=== PATIENT | male | born 1985 | race Caucasian/White ===

== ENCOUNTER 2020-10-26 05:30 | Emergency (ER) | payer OTHER, SELFPAY ==
--- NOTE | ~2020-10-26 | CT_ITS ---
EXAMINATION: CT HEAD WITHOUT CONTRAST CLINICAL INFORMATION: Dizziness COMPARISON: None TECHNIQUE: Contiguous axial imaging was performed from the skull base to vertex without intravenous administration of contrast. This CT examination was performed using dose optimization techniques as appropriate, variously including the following: *Automated exposure control *Adjustment of mA and/or kV according to patient size (this includes techniques or standardized protocols for targeted exams where dose is matched to indication/reason for exam; i.e. extremities or head) *Use of iterative reconstruction technique DLP: 752 mGy-cm FINDINGS: There is no evidence of acute intracranial hemorrhage or territorial infarction. No abnormal mass effect or midline shift is seen. Rae to white matter differentiation is well preserved. No extra-axial fluid collections are identified. The ventricles are normal in size. There is no abnormal attenuation within the brain parenchyma. The paranasal sinuses are well aerated. Patient status post left mastoidectomy. CT/CT head/brain wo con IMPRESSION: No acute intracranial pathology. Status post left mastoidectomy.
--- NOTE | ~2020-10-26 | MR_ITS ---
EXAMINATION: MR BRAIN WITHOUT CONTRAST CLINICAL INFORMATION: Dizziness. COMPARISON: CT head from 10/26/2020. TECHNIQUE: MRI of the brain was obtained using routine sequences without contrast. FINDINGS: No focal restricted diffusion is demonstrated to suggest acute or subacute cerebral ischemia. No evidence of acute or chronic hemorrhagic products on heme-sensitive imaging. Normal parenchymal signal characteristics. The ventricles are normal in morphology and size. No abnormal mass effect. No midline shift. Normal appearance of the pituitary gland. No abnormalities of the posterior fossa with normal appearance of the brainstem and cerebellum. The cerebellar tonsils are positioned at the level of foramen magnum. Normal arterial and venous vascular flow voids are present. Normal, homogeneous marrow signal. Mild mucosal thickening of the paranasal sinuses. Mild leftward nasal septal deviation. Changes of left-sided mastoidectomy. MR/MR head/brain wo con IMPRESSION: 1. No acute intracranial abnormalities. 2. No demonstrated MRI abnormalities to explain the patient's symptoms.
[2020-10-26 05:40] VITALS: BP 119/70; PULSE 72; RESP 18; TEMP 36.5; O2SAT 98; BMI 33.5
[2020-10-26] MEDS: ondansetron HCL 4 MG/2 ML VIAL IVPUSH ×2 (06:05→07:43)
[2020-10-26 06:10] LABS: MANUAL DIFF FLAG NO
[2020-10-26 06:12] LABS: Basophils Absolute Auto 0.1 X10*3/uL (0.0-0.2); Basophils Percent Auto 0.7 % (0-2); Eosinophils Absolute Auto 0.2 X10*3/uL (0.0-0.4); Eosinophils Percent Auto 1.2 % (0-4); Hematocrit 40.3 % (42-52); Hemoglobin 13.4 g/dl (14.0-18.0); Imm Gran Abs Auto 0.14 X10*3/uL (0.00-0.03); Imm Gran Pct Auto 1.2 % (0.0-0.4); Lymphocytes Percent Auto 16.8 % (20-40); Mean Corpuscular HGB Conc 33.3 g/dl (31.0-36.0); Mean Corpuscular Hemoglobin 28.3 pg (27.0-33.0); Mean Platelet Volume 9.6 fL (9.4-12.4); Monocytes Absolute Auto 0.7 X10*3/uL (0.1-1.2); Monocytes Percent Auto 5.4 % (2-11); Neutrophils Absolute Auto 9.1 X10*3/uL (2.0-8.3); Neutrophils Percent Auto 74.7 % (45-73); Platelet Count 319 X10*3/uL (160-400); Red Blood Count 4.74 X10*6/uL (4.60-5.80); Red Cell Distribution Width 14.1 % (11.0-16.0); White Blood Count 12.2 X10*3/uL (4.8-10.8)
[2020-10-26] MEDS: 0.9 % Sodium Chloride 1,000 ML 999 ML IVCONT ×2 (06:40→07:43)
--- NOTE | 2020-10-26 07:04 | ED.NAVMDI ---
HPI - Nausea/Vomiting/Diarrhea General Chief complaint: Nausea/Vomiting/Diarrhea Stated complaint: Vomiting Time Seen by Provider: 10/26/20 06:36 History of Present Illness HPI Narrative: 34 years old male presented with a chief complaint of nausea vomiting dizzness since AM. Denies any abdominal pain any fever chills. Dizziness is described as spinning of the head, patient keep his eyes closed during the interview MD elicited complaint: nausea and vomiting Onset (ago): day(s) (1 day) Description of vomiting: watery Associated nausea: Yes Associated abdominal pain: No Severity: moderate Related Data Previous Rx's Medication Instructions Recorded meclizine 25 mg PO TID PRN #15 tab 10/26/20 ondansetron HCl [Zofran] 4 mg PO Q8H PRN #14 tab 10/26/20 Allergies Allergy/AdvReac Type Severity Reaction Status Date / Time No Known Allergies Allergy Unverified 02/22/20 16:14 Review of Systems Review of Systems: Yes all other systems are reviewed and are negative Cardiovascular: Cardiovascular: Reports no additional cardiovascular complaints Gastrointestinal: Gastrointestinal: Reports no additional gastrointestinal complaints and Reports nausea PMFSH Past Medical History Attestation statement: The following information was validated with the patient. Source: unable to obtain Medical History Hypothyroid Social History Social History Advance Directives: No Advance Directives Information Provided: No Physical Exam Vital Signs: Vital Signs: Last Vital Signs Temp 97.7 F 10/26/20 05:40 Pulse 69 10/26/20 12:11 Resp 16 10/26/20 12:11 BP 116/60 10/26/20 12:11 Pulse Ox 98 10/26/20 12:11 Body Mass Index 33.5 Const: General: cooperative and healthy appearing Orientation/consciousness: oriented to person, oriented to place, oriented to time and patient oriented x3 HENMT: Head: Yes normal to inspection and Yes No palpable skull fracture present Eyes: General: appearance normal, both eyes and all related structures Visual Perez: normal visual perez by confrontation Alignment and Position: alignment normal Neck: Neck: Yes normal visual inspection and Yes full ROM Chest: Chest palpation & inspection: normal inspection of the chest and normal palpation of entire chest wall Resp: Effort & Inspection: normal respiratory effort Cardio: Jugular venous distension: no JVD Palpation: normal PMI GI: Inspection: Yes normal to inspection and No abdominal wall ecchymosis Palpation (GI): Soft to palpation Skin: General skin exam: no rashes or lesions noted and elasticity normal Rashes: no rashes Neuro: General: oriented to person, oriented to place, oriented to time and patient oriented x3 Course Reevaluation(s) Reevaluation #1: The patient continued to be dizzy, is gait is unsteady, head CT is negative. I think at this point that we are going to get an MRI of the brain assuming that is normal patient will be discharged home Time: 14:14 Reevaluation #2: MRI is negative for cerebellar infart , I think at this point we could discharge the patient home, I will prescribe some meclizine and Zofran,clinically he is feeling better able to ambulate no vomiting tolerating po well MDM - Nausea/Vomiting/Diarrhea Lab Data Result diagrams: 10/26/20 06:02 10/26/20 08:20 Labs: Lab Results 10/26/20 10/26/20 10/26/20 Range/Units 06:02 08:20 08:38 WBC 12.2 H (4.8-10.8) X10*3/uL RBC 4.74 (4.60-5.80) X10*6/uL Hgb 13.4 L (14.0-18.0) g/dl Hct 40.3 L (42-52) % MCV 85.0 (80-98) fL MCH 28.3 (27.0-33.0) pg MCHC 33.3 (31.0-36.0) g/dl RDW 14.1 (11.0-16.0) % Plt Count 319 (160-400) X10*3/uL MPV 9.6 (9.4-12.4) fL Immature Gran % (Auto) 1.2 H (0.0-0.4) % Neut % (Auto) 74.7 H (45-73) % Lymph % (Auto) 16.8 L (20-40) % [place] % (Auto) 5.4 (2-11) % Eos % (Auto) 1.2 (0-4) % Baso % (Auto) 0.7 (0-2) % Lymph # (Auto) 2.0 (1.2-4.9) X10*3/uL [place] # (Auto) 0.7 (0.1-1.2) X10*3/uL Eos # (Auto) 0.2 (0.0-0.4) X10*3/uL Baso # (Auto) 0.1 (0.0-0.2) X10*3/uL Abs Immat Gran (auto) 0.14 H (0.00-0.03) X10*3/uL Absolute Neuts (auto) 9.1 H (2.0-8.3) X10*3/uL Absolute Nucleated RBC 0.000 (0.0-0.012) X10*3/uL Nucleated RBC % (auto) 0.0 (0.0-0.2) /100WBC Sodium 144 (135-145) mmol/L Potassium 3.9 (3.3-5.1) mmol/L Chloride 111 H (96-108) mmol/L Carbon Dioxide 23 (22-29) mmol/L Anion Gap 14 (12-20) BUN 11 (9-16) mg/dL Creatinine 0.88 (0.5-1.4) mg/dL Estim Creat Clear Calc 151.2 Estimated GFR > 60 Random Glucose 149 H (60-115) mg/dL Calcium 8.4 (8.4-10.2) mg/dL Total Bilirubin 0.5 (0.0-1.0) mg/dL Direct Bilirubin 0.2 (0.0-0.5) mg/dL AST 23 (5-37) U/L ALT 67 H (0-40) U/L Alkaline Phosphatase 76 (39-117) U/L Total Protein 6.6 (6.5-8.0) g/dL Albumin 3.7 (3.5-5.0) g/dL Lipase 13 (8-78) U/L TSH 0.69 (0.32-4.0) uIU/mL Urine Color YELLOW Urine Appearance CLEAR Urine pH 6.5 (5.0-8.0) Ur Specific [place] 1.020 (1.005-1.025) Urine Protein NEG (NEG-TRACE) MG/DL Urine Glucose (UA) NEG (NEG) MG/DL Urine Ketones 15 (NEG) MG/DL Urine Blood NEG (NEG) Urine Nitrite NEG (NEG) Ur Leukocyte Esterase NEG (NEG) Discharge Plan Discharge Clinical Impression: Dizziness Patient Disposition: Home, Self-Care Instructions: Dizziness (ED) Prescriptions: New ondansetron HCl [Zofran] 4 mg tablet 4 mg PO Q8H PRN (Reason: nausea and vomiting) Qty: 14 RF: 0 meclizine 25 mg tablet 25 mg PO TID PRN (Reason: dizziness) Qty: 15 RF: 0 Referrals: David Sheridan MD [Physician] - 2 days Interventions: ED Discharge Assessment Last Done: 10/26/20 14:29 Discharge Date/Time: 10/26/20 14:29
[2020-10-26 07:43] VITALS: BP 121/75; PULSE 67; RESP 14; O2SAT 99
--- NOTE | 2020-10-26 07:44 | PC.NURSE ---
Pt medicated with additional Zofran dose after vomiting x2 approx 200ml of emesis. Pt reports n/v/d since yesterday, denies abd pain. Pt is pale, cool to touch. Vitals stable. another NS liter started per order. No guarding to abd noted. Pt also reports being without Levothyroxine for months.
[2020-10-26] MEDS: Metoclopramide HCl 10 MG/2 ML VIAL IVPUSH (08:23)
[2020-10-26] MEDS: diphenhydrAMINE HCL 50 MG/ML VIAL 25 MG IVPUSH (08:23)
--- NOTE | 2020-10-26 08:40 | PC.NURSE ---
pt medicated with additonal meds for nausea as no change s/p second dose of zofran
[2020-10-26 09:02] LABS: Alanine Aminotransferase 67 U/L (0-40); Albumin Level 3.7 g/dL (3.5-5.0); Alkaline Phosphatase 76 U/L (39-117); Anion Gap 14 (12-20); Aspartate Amino Transferase 23 U/L (5-37); Bilirubin Direct 0.2 mg/dL (0.0-0.5); Bilirubin Total 0.5 mg/dL (0.0-1.0); Blood Urea Nitrogen 11 mg/dL (9-16); Calcium 8.4 mg/dL (8.4-10.2); Carbon Dioxide 23 mmol/L (22-29); Chloride 111 mmol/L (96-108); Creatinine Clr Calc Pharmacy 151.2; Estimated Glomerular Filt Rate > 60; Glucose Random 149 mg/dL (60-115); Lipase 13 U/L (8-78); Potassium 3.9 mmol/L (3.3-5.1); Sodium 144 mmol/L (135-145); Total Protein 6.6 g/dL (6.5-8.0)
[2020-10-26 09:07] LABS: Glucose Urine UA NEG (NEG); Leukocyte Esterase Urine NEG (NEG); Nitrite Urine NEG (NEG); PH 6.5 (5.0-8.0); Urine Blood NEG (NEG); Urine Ketones 15 MG/DL (NEG); Urine Protein NEG (NEG-TRACE)
[2020-10-26 09:10] LABS: Appearance Urine CLEAR; Color Urine YELLOW
[2020-10-26 09:24] LABS: Thyroid Stimulating Hormone 0.69 uIU/mL (0.32-4.0)
[2020-10-26] MEDS: Meclizine HCl 25 MG TABLET PO (09:35)
--- NOTE | 2020-10-26 12:00 | PC.NURSE ---
Ambulation trial completed, pt remains dizzy and unsteady, plan for MRI, screening form completed and faxed to MRI
[2020-10-26 12:11] VITALS: BP 116/60; PULSE 69; RESP 16; O2SAT 98
== END 2020-10-26 14:29 | disposition home or self-care (01) ==
PROVIDERS: Emergency Provider Emergency Medicine
DX: R42 Dizziness and giddiness (principal); R11.2 Nausea with vomiting, unspecified
CPT/HCPCS: 36415; 70450; 70551; 80048; 80076; 81003; 83690; 84443; 85025; 96361; 96374; 96375; 96376; 99284; 99285; J1200; J2405; J2765